=== PATIENT | male | born 1985 | race Caucasian/White ===

== ENCOUNTER 2020-06-03 10:37 | Emergency (ER) | payer OTHER, SELFPAY ==
--- NOTE | 2020-06-03 10:51 | ED.GENADULT ---
HPI - General Adult General Chief complaint: Dental/Oral Stated complaint: tooth pain Time Seen by Provider: 06/03/20 11:06 Source: patient Mode of arrival: ambulatory Limitations: no limitations History of Present Illness HPI narrative: 34-year-old male patient presents to the [facility] with complaints of left lower dental pain. Patient states he broke off tooth in the back on the left lower side about 2 months ago. Patient states he has had intermittent pain off and on but states that recently in the last 2 weeks the pain has been lasting longer longer and this morning the pain got increasingly worse to the point where the Tylenol that he has been taking has not been working or helping with the pain. Patient states he does have an appointment with his dentist scheduled for July 02 but states that they he called them today and they deny recommended that he be seen for possible infection. Patient denies fevers, body aches or chills. Denies any swelling to the face. Denies chest pain or shortness of breath Related Data Allergies Allergy/AdvReac Type Severity Reaction Status Date / Time No Known Allergies Allergy Verified 06/03/20 11:09 Review of Systems Review of Systems: Narrative: CONSTITUTIONAL: Denies fever, chills, or sweats. EYES: Denies visual changes, redness, or discharge. ENT: Denies rhinorrhea, congestion, sore throat, or otalgia. Positive left lower dental pain CARDIOVASCULAR: Denies chest pain, palpitations, or edema. RESPIRATORY: Denies cough or dyspnea. GASTROINTESTINAL: Denies abdominal pain, nausea, vomiting, or diarrhea. GENITOURINARY: Denies dysuria or hematuria. SKIN: Denies rash or itching. MUSCULOSKELETAL: Denies back pain, joint pain, or myalgia. NEUROLOGIC: Denies headache, numbness, or weakness. PSYCHIATRIC: Denies anxiety or depression. PMFSH Comments At the time of my signature I agree with nursing past medical history, surgical, social, and family history. There is no relevant family history pertinent to the presenting complaint. Exam Narrative: Exam Narrative: GENERAL: Well-appearing, well-nourished, and in no acute distress. HEAD: Normocephalic, atraumatic. EYES: PERRLA and EOMI. ENT: Nares clear, no rhinorrhea or epistaxis. Mucous membranes moist. Patient does have an noticeable broken tooth to the left lower molar. There is some tenderness on palpation around this tooth along with slight erythema. No swelling noted to the cheek. No abscess palpated to the cheek or gums. NECK: Supple. No lymphadenopathy CHEST: Clear to auscultation. No respiratory distress. HEART: Regular rate and rhythm. No murmur heard. Normal peripheral pulses. ABDOMEN: Soft, nontender, nondistended, normal active bowel sounds. EXTREMITIES: Normal range of motion. No edema. SKIN: Warm, dry, no rash. NEURO: No focal deficits. Alert and oriented x3. Course Vital Signs Vital signs: Vital Signs Temperature 36.3 C L 06/03/20 10:55 Pulse Rate 80 06/03/20 10:55 Respiratory Rate 16 06/03/20 10:55 Blood Pressure 171/95 H 06/03/20 10:55 Pulse Oximetry 100 06/03/20 10:55 Temperature 36.3 C L 06/03/20 10:55 Pulse Rate 80 06/03/20 10:55 Respiratory Rate 16 06/03/20 10:55 Blood Pressure 171/95 H 06/03/20 10:55 Pulse Oximetry 100 06/03/20 10:55 Vital signs reviewed. The patient has been informed that they may have pre-hypertension or Hypertension based on a BP reading in the department. I recommend that the patient call the primary care provider listed on their discharge instructions or a physician of their choice this week to arrange follow up for further evaluation of possible pre-hypertension or Hypertension Medical Decision Making Differential Diagnosis Differential Diagnosis: Differential diagnosis: Dental caries, periodontal disease, avulsed tooth, tooth infections, mandibular infection, Alex's angiana, upper tooth infection, dry socket, gingivitis, acute necrotizing ulcerative gi
[2020-06-03 10:55] VITALS: BP 171/95; PULSE 80; RESP 16; TEMP 36.3; O2SAT 100
== END 2020-06-03 11:20 | disposition home or self-care (01) ==
PROVIDERS: Emergency Provider Nurse Practitioner Family; PCP Nurse Practitioner
DX: K02.9 Dental caries, unspecified (principal)
CPT/HCPCS: 99213; G0463